=== PATIENT | female | born 1940 | race Hispanic/Latino ===

== ENCOUNTER → 2019-01-01 | Day surgery (SDC) | payer MEDICARE ==
[2018-12-28 16:35] LABS: BASOPHILS # (AUTO) 0.1 (0.0-0.1); BASOPHILS % 0.5 % (0.0-1.0); EOSINOPHILS # (AUTO) 1.6 (0.0-0.4); EOSINOPHILS % 13.7 % (0.0-6.0); HEMATOCRIT 41.5 % (34.2-44.1); HEMOGLOBIN 13.6 g/dL (12.0-16.0); LYMPHOCYTES # (AUTO) 4.8 (1.0-3.2); LYMPHOCYTES % 39.9 % (18.0-39.1); MEAN CORPUSCULAR HEMOGLOBIN 30.6 pg (28-32); MEAN CORPUSCULAR HGB CONC 32.8 g/dL (31-35); MEAN CORPUSCULAR VOLUME 93.3 fL (81-99); MONOCYTES # (AUTO) 0.7 (0.2-0.8); NEUTROPHILS # (AUTO) 4.7 (2.1-6.9); NEUTROPHILS % 39.5 % (38.7-80.0); PLATELET COUNT 246 x10e3/uL (140-360); RED BLOOD COUNT 4.45 x10e6/uL (3.6-5.1); RED CELL DISTRIBUTION WIDTH 12.9 % (11.7-14.4)
[2018-12-28 16:45] LABS: INR 0.94; PROTHROMBIN TIME 13.1 seconds (11.9-14.5)
[2018-12-28 16:46] LABS: PARTIAL THROMBOPLASTIN TIME 29.7 seconds (23.8-35.5)
[2018-12-28 16:52] LABS: ALANINE AMINOTRANSFERASE 17 IU/L (0-55); ALBUMIN 4.4 g/dL (3.5-5.0); ALBUMIN/GLOBULIN RATIO 1.5 (0.8-2.0); ALKALINE PHOSPHATASE 77 IU/L (40-150); ANION GAP 13.5 mmol/L (8-16); BLOOD UREA NITROGEN 18 mg/dL (7-26); BUN/CREATININE RATIO 27 (6-25); CALCIUM 10.3 mg/dL (8.4-10.2); CARBON DIOXIDE 29 mmol/L (22-29); CHLORIDE 96 mmol/L (98-107); CREATININE, SERUM 0.66 mg/dL (0.57-1.11); EST GLOMERULAR FILTRATION RATE > 60 ML/MIN (60-); GLUCOSE 95 mg/dL (74-118); POTASSIUM 3.5 mmol/L (3.5-5.1); SODIUM 135 mmol/L (136-145)
[2018-12-28 18:14] LABS: ANISOCYTOSIS SLIGHT; EOSINOPHILS % (MANUAL) 16 % (0-7); LYMPHOCYTES % (MANUAL) 44 % (19-48); MONOCYTES % (MANUAL) 5 % (3.4-9.0); NEUTROPHILS % (MANUAL) 35 % (40-74); PLATELET ESTIMATE ADEQUATE; PLATELET MORPHOLOGY COMMENT NORMAL; RBC MORPHOLOGY COMMENT NORMAL
[2019-01-01] VITALS (8 sets, daily range): BP systolic 96–139; BP diastolic 51–97
[~2019-01-01] VITALS: Ht 157.5 cm; Wt 63.5 kg
[~2019-01-01] MED LIST: ARICEPT5 MG PO; ASA325 PO; ASPIR 8181 MG PO; ATENOLOL25 MG PO; ATORVASTATIN CA20 MG PO; CATAPRES0.1 MG PO; DIOVAN80 MG PO; FENTANYL CITRATE/PF 100MCG/2 ML INJ ONE; HEPARIN SOD (PORCINE) 1000 UNIT/ML 30ML ONE; HEPARIN SOD/SOD CHLORIDE 2,000 ML ONE; IOPAMIDOL 370 MG/ML 200 ML INFUS..BTL INJ ONE; LIDOCAINE HCL 2% LOCAL 20 ML VIAL ONE; LORTAB 7.5-5001 EACH PO; LOSARTAN POTASS25 MG PO; METFORMIN HCL500 MG PO; MIDAZOLAM HCL 2 MG/2 ML VIAL ONE; NITROGLYCERIN/D5W 200 MCG/ML 250 ML ONE; NORCO 7.5-3251 EACH PO; PANTOPRAZOLE SO40 MG PO; SERTRALINE HCL50 MG PO; SIMVASTATIN20 MG PO; SODIUM CHLORIDE 0.9% 1000ML 1,000 ML ONE; VERAPAMIL HCL 2.5 MG/ML 2 ML VIAL ONE
--- NOTE | 2019-01-02 20:37 | Operative Report ---
DATE OF PROCEDURE: 01/01/2019 SURGEON: Fady Kulkarni MD PROCEDURES PERFORMED: 1. Selective coronary angiography. 2. Left heart catheterization. 3. TR band hemostasis. PROCEDURE COMPLICATIONS: None. ESTIMATED BLOOD LOSS: Less than 15 mL. PROCEDURE SUMMARY: After consent was obtained, the patient was prepped and draped in a sterile fashion. The right radial site was locally infiltrated with 2% lidocaine and access was obtained and a 5-Tristanian outer diameter slender sheath was advanced. A TIG catheter was used to engage the left main and then engaged in the right coronary artery with angiography was performed in multiple views. Following findings were noted. Of note, the aortic valve was crossed and hemodynamic measurements were obtained, however, no left ventriculogram was performed. 1. Left main is large in caliber with luminal irregularities gives an LAD and circumflex. 2. The LAD has proximal less than 30% stenosis giving septal perforators and diagonal flow small caliber. The mid LAD has 30% focal stenosis. The distal LAD has luminal irregularities. 3. The circumflex has luminal irregularities giving a two obtuse marginal of medium caliber. 4. The right coronary artery is dominant with 30% stenosis in the proximal segment and gives a terminal RPDA and RPLV. 5. The LV pressure is 114/-4 with end-diastolic pressure of 6. 6. The aortic pressure is 113/65. 7. No left ventriculogram was performed. CONCLUSION: Mild obstructive coronary artery disease. RECOMMENDATIONS: 1. Medical management. 2. Wean TR band. 3. Adjust statin therapy of portion potency. Continue aspirin. Fady Kulkarni MD AFV/MODL /[id number]
== END | disposition home or self-care (01) ==
LOC: CATH LAB 08:19
PROVIDERS: ATTEND Internal Medicine Cardiovascular Disease
DX: I25.10 Atherosclerotic heart disease of native coronary artery without angina pectoris (principal); I10 Essential (primary) hypertension; E78.5 Hyperlipidemia, unspecified; E11.8 Type 2 diabetes mellitus with unspecified complications; K21.9 Gastro-esophageal reflux disease without esophagitis; Z01.810 Encounter for preprocedural cardiovascular examination; Z01.812 Encounter for preprocedural laboratory examination; Z79.84 Long term (current) use of oral hypoglycemic drugs
CPT/HCPCS: 36415; 80053; 80061; 85025; 85610; 85730; 93005; 93458; C1769; C1887; J1644; J2001; J2250; J3010; J7030; Q9967

== ENCOUNTER → 2021-04-09 | Outpatient (CLI) | payer MEDICARE ==
[~2021-04-09] MED LIST changes: -FENTANYL CITRATE/PF 100MCG/2 ML INJ ONE; -HEPARIN SOD (PORCINE) 1000 UNIT/ML 30ML ONE; -HEPARIN SOD/SOD CHLORIDE 2,000 ML ONE; -IOPAMIDOL 370 MG/ML 200 ML INFUS..BTL INJ ONE; -LIDOCAINE HCL 2% LOCAL 20 ML VIAL ONE; -MIDAZOLAM HCL 2 MG/2 ML VIAL ONE; -NITROGLYCERIN/D5W 200 MCG/ML 250 ML ONE; -SODIUM CHLORIDE 0.9% 1000ML 1,000 ML ONE; -VERAPAMIL HCL 2.5 MG/ML 2 ML VIAL ONE
== END ==
LOC: CT 15:20
PROVIDERS: ATTEND Family Medicine
DX: F03.90 Unspecified dementia, unspecified severity, without behavioral disturbance, psychotic disturbance, mood disturbance, and anxiety (principal); R41.82 Altered mental status, unspecified
CPT/HCPCS: 70450